=== PATIENT | male | born 1985 | race Caucasian/White ===

== ENCOUNTER 2019-03-30 11:01 | Emergency (ER) | payer MEDICAID ==
[2019-03-30] MEDS: LIDOCAINE 1% (MDV) 20 ML INJ SC (12:22)
[2019-03-30] MEDS: DIPHTH/TET/ACEL PERTUSS (ADULT) 0.5 ML VIAL IM* (12:22)
[2019-03-30] MEDS: CEFAZOLIN 1 GM INJ IM (13:17)
== END 2019-03-30 14:30 | disposition home or self-care (01) ==
LOC: FTE 11:01
DX: S81.811A Laceration without foreign body, right lower leg, initial encounter (principal); W31.1XXA Contact with metalworking machines, initial encounter; Y92.9 Unspecified place or not applicable; Z23 Encounter for immunization
CPT/HCPCS: 12002; 73590; 90471; 90715; 96372; 99284-25

== ENCOUNTER 2019-04-01 09:46 | Emergency (ER) | payer MEDICAID | END 2019-04-01 11:01 | disposition home or self-care (01) | LOC: FTE 09:46 | DX: Z48.00 Encounter for change or removal of nonsurgical wound dressing (principal) | CPT/HCPCS: 99281; Z7502 ==

== ENCOUNTER 2019-04-06 10:08 | Emergency (ER) | payer MEDICAID | END 2019-04-06 11:11 | disposition home or self-care (01) | LOC: FTE 10:08 | DX: Z48.02 Encounter for removal of sutures (principal) | CPT/HCPCS: 99281; Z7502 ==